=== PATIENT | male | born 1945 | race Caucasian/White ===

== ENCOUNTER 2018-01-02 05:55 | Day surgery (SDC) | payer MEDICARE ==
[~2018-01-02] VITALS: Ht 172.7 cm; Wt 111.1 kg
[~2018-01-02 05:55] MED LIST: ASPIR-LOW81 MG PO; FUROSEMIDE20 MG PO; GLUCOPHAGE500 MG PO; LEVOTHYROXINE25 MCG PO; LISINOPRIL10 MG PO; METOPROLOL SUCC50 MG PO; ZYRTEC10 MG PO
--- NOTE | 2018-01-02 08:00 | NUR ---
[id number]: HEPARIN GIVEN TO ASHU HERRERA, SQL SERVER DBA TO GIVE IN OR.
--- NOTE | 2018-01-02 09:14 | NUR ---
01/02/18 0914 Iram Pike 0905 PATIENT ARRIVES TO PACU AWAKE OFF/ON BUT VERY DROWSY. PATIENT ADMITS HE FEELS VERY GROGGY AND ASK IF THAT IS NORMAL, THEN BACK TO SLEEP. WHEN ASKED IF PATIENT HAS PAIN HE SAYS YES, BUT UNABLE TO QUANTIFY OR POINT TO LOCATION OF PAIN. RESP EVEN AND UNLABORED, MASK AT 6 LITERS.
--- NOTE | 2018-01-02 09:59 | NUR ---
PT ARRIVES TO DS RM 5 AWAKE AND ALERT. PT STATES HE "FEELS WEIRD." PT PROVIDED ICED WATER AND CRACKERS ON ARRIVAL. PT VERY TALKATIVE. CALL LIGHT AT PT LEFT SIDE. PT DRINKING SIPS OF WATER. NO C/O'S AT THIS TIME.
[2018-01-02] MEDS ORDERED: NORCO 5-325 TA1 EACH PO (10:19)
--- NOTE | 2018-01-02 10:44 | NUR ---
PT TOLERATES PO WELL AND DENIES ANY PAIN OR NAUSEA. PT REQUESTS TO CALL ON RM PHONE. PT RESTING QUIETLY IN ROOM WITH NO FURTHER REQUESTS. CALL LIGHT REMAINS AT LEFT OF PT.
--- NOTE | 2018-01-02 11:31 | OR ---
[facility] [address], [place] [address] Signed DATE OF OPERATION: 01/02/2018 SURGEON: Cece Burgess MD PREOPERATIVE DIAGNOSIS: Cholecystitis with cholelithiasis. POSTOPERATIVE DIAGNOSIS: Cholecystitis with cholelithiasis. PROCEDURE: Laparoscopic cholecystectomy without intraoperative cholangiogram. ESTIMATED BLOOD LOSS: None. INDICATIONS: Davi is a 72-year-old obese diabetic gentleman, who was having upper abdominal pain. His alkaline phosphatase was elevated. An ultrasound of the right upper quadrant showed that his gallbladder appeared to be completely full of stones. It seemed to be contracted and thickened about 4 mm. Common bile duct was unremarkable. He was asked to see me with respect to the above. In the office, I gave him a booklet on the gallbladder. He understands the location and function of the gallbladder. We reviewed laparoscopic versus open cholecystectomy. He also understands the expected intraop and postop course. There is risk to surgery including, but not limited to bleeding, infection, scarring, change in contour of the skin, damage to bowel, damage to main bile duct, incisional hernias and other unforeseen comorbidities. He had expressed understanding and wished to proceed. PROCEDURE NOTE: Davi was taken into our operating room and placed in the supine position under general endotracheal tube anesthesia. He was given preoperative antibiotics along with subcutaneous heparin. SCDs were utilized. He was then prepped and draped in the usual sterile fashion. All trocars were placed in usual positions under direct visualization of camera without difficulty. We found that he has a large thick walled abdomen and his liver was quite a bit up underneath the ribcage. In fact, we could get our camera as close as we normally would like in order for visualization in detail. In addition, we had an extra nurse scrub in to help hold retractors. Fortunately, we did not have to place our fan retractor. We cleared off the triangle of [place] and a clip was placed on the cystic artery and it was divided. Because of the technical difficulties we were Electronically Signed By: CECE BURGESS MD 01/02/18 1131 PATIENT NAME: DAVI PLAZA OPERATIVE REPORT DATE OF : 47 REPORT #: [id number] PHYSICIAN: CECE BURGESS MD PCP: ROJAS ALDRIDGE MD REPORT IS CONFIDENTIAL AND NOT TO BE RELEASED WITHOUT AUTHORIZATION [facility] [address] [place] [id number] Signed having, we knew our metal Ranfac catheter would not reach for the cholangiogram. Consequently, we decided to abandon the intraoperative cholangiogram. I placed four clips completely across the cystic duct stump and it was divided sharply with the scissors. We then carefully removed the gallbladder from the gallbladder fossa with the help of the cautery and placed into an EndoCatch bag. After this, the right upper quadrant was irrigated and suctioned out until clear. We used our laparoscopic suturing device to pass 0 Vicryl suture on either side of the fascia of the subxiphoid trocar site. This was tied down to close this fascia primarily. After this, the gallbladder was removed along with the remaining trocars, and all the gas was allowed to escape. The gallbladder was opened on the back table by our circulating nurse. It was a little thickened and had a 12 mm stone stuck in the neck of the gallbladder as well as several small 3 mm yellow cholesterol stones. After this, we closed the fascia of the supraumbilical trocar site with interrupted [id number] and simple 0 Vicryl sutures. Local anesthetic was copiously injected into all trocar sites. Each trocar site was irrigated and suctioned out until clear. The skin and dermis of each trocar site were closed with interrupted 3-0 subcuticular Monocryl sutures. Dry gauze and tape were then applied all incisions. Davi was awakened from his anesthesia, extubated in the OR, and taken to recovery room in stable condition. Cece Burgess MD ALB/MODL /[id number] cc: MD Cece St MD Malcolm Townsley, MD Aimee Rogers, MD Copies: NYLA PARADA MD, ANDREW L MD TOWNSLEY, MALCOLM MD Electronically Signed By: CECE BURGESS MD 01/02/18 1131 PATIENT NAME: DAVI PLAZA OPERATIVE REPORT DATE OF : 47 REPORT #: [id number] PHYSICIAN: CECE BURGESS MD PCP: ROJAS ALDRIDGE MD REPORT IS CONFIDENTIAL AND NOT TO BE RELEASED WITHOUT AUTHORIZATION [address] [address] Signed BERENICE VASQUEZ MD ~ Electronically Signed By: CECE BURGESS MD 01/02/18 1131 PATIENT NAME: DAVI PLAZA OPERATIVE REPORT DATE OF : 47 REPORT #: [id number] PHYSICIAN: CECE BURGESS MD PCP: ROJAS ALDRIDGE MD REPORT IS CONFIDENTIAL AND NOT TO BE RELEASED WITHOUT AUTHORIZATION
--- NOTE | 2018-01-02 12:06 | NUR ---
[id number]: PT REQUESTS YOGURT. DIETARY NOTIFIED. CALL LIGHT AT PT LEFT SIDE. NO C/O'S AT THIS TIME. 1200: PT TOLERATES PO WELL. AND DAUGHTER AT PT BEDSIDE, CONVERSING. 1210: PT UP TO BR WITH RN ASSIST. PT AMBULATES WELL.
--- NOTE | 2018-01-02 12:38 | NUR ---
PT VOIDS 100 MLS YELLOW URINE WITH NO PROBLEMS. PT BACK IN RM SITTING IN CHAIR AT BEDSIDE PER REQUEST. ALL DC CRITERIA MET, PT AGREES HE IS READY TO GET DRESSED AND GO HOME.
--- NOTE | 2018-01-02 13:54 | NUR ---
LE 1300: DC INSTRUCTIONS GIVEN IN PRESENCE OF PT, , AND DAUGHTER. ALL QUESTIONS ANSWERED AND PT VERBALIZES AN UNDERSTANDING OF DC INSTRUCTIONS. PAIN MEDICATION SCRIPT GIVEN TO PT. PT DC'S VIA WHEELCHAIR FROM DS UNIT RM 5.
--- NOTE | 2018-01-02 13:58 | NUR ---
PT WAS ALERT AND ORIENTED. SEEMED DISTRACTED, LOOKING AT WALL OFTEN. HE THEN STATED THAT HE WAS INTRIQUED BY CRUCIFIX ON WALL. I EXPLAINED THIS PARTICULIAR ONE, CHOSEN FOR THIS HOSPITAL. HE SEEMED SATISFIED, AND REQUESTED PRAYER. WILL FOLLOW NEEDED
== END 2018-01-02 13:05 | disposition home or self-care (01) ==
LOC: DS 05:55
PROVIDERS: Colon & Rectal Surgery
PROC: 0FT44ZZ Resection of Gallbladder, Percutaneous Endoscopic Approach (ICD-10-PCS; principal; 2018-01-02 06:45)
DX: K80.10 Calculus of gallbladder with chronic cholecystitis without obstruction (principal); E11.22 Type 2 diabetes mellitus with diabetic chronic kidney disease; E11.622 Type 2 diabetes mellitus with other skin ulcer; L97.221 Non-pressure chronic ulcer of left calf limited to breakdown of skin; I12.9 Hypertensive chronic kidney disease with stage 1 through stage 4 chronic kidney disease, or unspecified chronic kidney disease; N18.3 Chronic kidney disease, stage 3 (moderate); E03.9 Hypothyroidism, unspecified; E66.01 Morbid (severe) obesity due to excess calories; Z88.0 Allergy status to penicillin; Z68.38 Body mass index [BMI] 38.0-38.9, adult; Z79.82 Long term (current) use of aspirin; Z79.899 Other long term (current) drug therapy; Z79.84 Long term (current) use of oral hypoglycemic drugs
CPT/HCPCS: 00790; 88304; J0330; J0694; J1100; J1644; J1885; J2250; J2405; J2704; J2710; J2765; J3010; J7120

== ENCOUNTER 2020-10-03 12:41 | Inpatient (IN) | payer MEDICARE ==
[~2020-10-03] VITALS: Ht 172.7 cm; Wt 111.9 kg
[~2020-10-03 12:41] MED LIST changes: +NORCO 5-325 TA1 EACH PO
[2020-10-03] MEDS ORDERED: ALLOPURINOL100 MG PO (12:45)
[2020-10-03] MEDS ORDERED: ROSUVASTATIN CAL5 MG PO (12:45)
[2020-10-03] MEDS ORDERED: LEVOTHYROXINE50 MCG PO (12:46)
[2020-10-03] MEDS ORDERED: METFORMIN HCL500 M1 PO (12:47)
--- NOTE | 2020-10-03 16:45 | NUR ---
PT TO FLOOR VIA STRETCHER WITH RN KRISTIAN AND DAUGHTER DANIELLA. PT HAS SLIGHTLY SLURRED SPEECH NOTICABLE TO HIM AND HIS DAUGHTER. HAS AN OCCASIONAL STUTTER. ARM AND LEG STRENGTH EQUAL BUT SLIGHTLY WEAKER THAN NORMAL FOR HIM. USES A WALKING CANE AT HOME. PT DENIES VISION DISTURBANCES OR SENSORY LOSS. PLACED ON TELE. ORDERED DINNER AFTER VERIFING THAT SWALLOW WAS INTACT. LOWER LEG EDEMA IS SIGNICANT AND STATES THAT DR VILLARREAL IS TAKING CARE OF THEM. VS STABLE.
[2020-10-03] MEDS ORDERED: CICLOPIROX6.6 ML TOP (17:12)
--- NOTE | 2020-10-03 17:20 | EKG ---
[facility] [address] [facility] [place], [place] [address] Signed Normal sinus rhythm Prolonged QT Abnormal ECG When compared with ECG of 31-DEC-2017 16:07, No significant change was found Confirmed by JOSE A PRITCHETT MD ([id number]) on 10/03/2020 5:20:46 PM Electronically Signed By: JOSE A PRITCHETT MD 10/03/20 1720 PATIENT NAME: PORTIA PLAZA DAGOBERTO Electrocardiogram DATE OF : 47 PHYSICIAN: JOSE A PRITCHETT MD REPORT #: [id number] REPORT IS CONFIDENTIAL AND NOT TO BE RELEASED WITHOUT AUTHORIZATION
--- NOTE | 2020-10-03 18:25 | NUR ---
PT SITTING UP IN BED EATING DINNER. ABLE TO FEED SELF WO DIFFICULTY. DENIES CONCERNS.
[2020-10-03] MEDS ORDERED: ANTI-DIARRHEAL2 MG PO (18:43)
[2020-10-03] MEDS ORDERED: CLARITIN10 MG PO (18:44)
--- NOTE | 2020-10-03 18:44 | NUR ---
MED REC COMPLETE
--- NOTE | 2020-10-03 19:29 | NUR ---
SHIFT REPORT FROM NURSE GOMEZ. PT LAYING IN BED, SLIGHTLY TILTED TO LEFT SIDE. PT AWAKES STAFF ENTERS ROOM. PT DENIES NEEDS AT THIS TIME. CALL LIGHT WITHIN REACH.
--- NOTE | 2020-10-03 20:30 | NUR ---
IN ROOM FOR ASSESSMENT AND CBG CHECK. PT IS ALERT AND ORIENTED. PT SEEMS TO LEAN TOWARDS THE LEFT, FACIAL SYMMETRY IS EQUAL, BILATERAL ARM STRENGTH IS EQUAL. VSS. PT WAS STILL IN JEANS WITH SUSPENDERS FROM ADMIT. JEANS REMOVED; PT WAS RELUCTANT TO DO SO BUT IN THE END AGREED D/T DIFFICULTY WITH JEANS AND URINAL USE. PT THEN STOOD AT BEDSIDE TO USE URINAL. 2PA TO STAND; 400ML URINE OUT. WATER FRESHENED. PT RETURNED TO BED. CALL LIGHT WITHIN REACH. NO FURTHER NEEDS AT THIS TIME.
--- NOTE | 2020-10-03 22:10 | NUR ---
IV PUMP ALARMING. PROBLEM RESOLVED. PT TALKATIVE, SPEECH IS QUITE CLEAR. PT DENIES NEEDS AT THIS TIME. CALL LIGHT WITHIN REACH
--- NOTE | 2020-10-04 00:29 | NUR ---
CALL LIGHT ANSWERED. PT TRIES TO USE URINAL ALTHOUGH THEN FEELS HE MUST HAVE A BM. 2PA TO BSC WITH FWW. PT IS WEAK IN LEGS, OVERESTIMATES WHAT HE CAN DO. LARGE BM SMEARS ON BED, ON SHEETS. PT HAD A LIQUID BM. PT RETURNED TO BED, CALL LIGHT WITHIN REACH. FRESH WATER PROVIDED. NO FURTHER NEEDS AT THIS TIME.
--- NOTE | 2020-10-04 01:27 | NUR ---
IV PUMP WAS ALARMING. PROBLEM RESOLVED. PT THEN STATES THAT HE NEEDS TO URINATE. PT ATTEMPTED USING URINAL WHILE LAYING IN BED WHICH WAS UNSUCCESSFUL. PT THEN REQUESTED TO SIT AT BEDSIDE TO USE URINAL WHICH WAS ALSO UNSUCCESSFUL. PT THEN REQUESTED TO STAND TO URINATE. 2PA TO STAND AND USE URINAL. 50ML IN URINAL AND APPROX 50ML ON FLOOR. PT IS IMPULSIVE AND DOES NOT SEEM TO RECOGNIZE WEAKNESS IN LEGS. PT MUST BE REMINDED OF SAFETY. PT RETURNED TO BED, CALL LIGHT WITHIN REACH. NO FURTHER NEEDS AT THIS TIME
--- NOTE | 2020-10-04 02:30 | NUR ---
IN ROOM FOR 0200 VS. PT ASLEEP, LAYING ON BACK, SNORING LIGHTLY. PT STIRS SLIGHTLY AND GOES QUICKLY BACK TO SLEEP DURING VITALS. NO APPARENT NEEDS AT THIS TIME. CALL LIGHT WITHIN REACH
--- NOTE | 2020-10-04 07:33 | NUR ---
REPORT RECIEVED FROM NIGHT RN.
--- NOTE | 2020-10-04 07:48 | NUR ---
MORNING ASSESSMENT DONE. PATIENT DENIES NEEDS. BG IS 123 WITH NO COVERAGE NEEDED. PATIENT HAS SOME MILD SLURRED SPEECH, BUT IS OTHERWISE RESOLVED FOR LEFT WEAKNESS, PER ASSESSMENT AND REPORTS.
--- NOTE | 2020-10-04 09:27 | NUR ---
MORNING MEDICATIONS ARE GIVEN. PHYSICAL THERAPY IN TO WORK WITH PATIENT.
--- NOTE | 2020-10-04 10:00 | NUR ---
Called and spoke with [facility]'s rehab. They have beds open. She request I wait to send to the chart until PT and OT have completed their assessments.
--- NOTE | 2020-10-04 10:08 | NUR ---
PATIENT AMBULATED IN HALLWAY WITH PHYSICAL THERAPY, BED FRESHENED, PATIENT UP TO CHAIR WITH WARM BLANKET.
--- NOTE | 2020-10-04 10:12 | NUR ---
Patient desires to return home with and daughter. He is concerned about going up the stairs in his house, stating he has six stairs to the landing, and then four stairs more to get inside his house. Will notify MD and PT. Patient states that he does the shopping, and that he does not have trouble with shopping or purchasing food or medications. Patient reports a.m. discharge would be preferred as his has not driven the care that they purchased one year ago, which is their only mode of transportaion, and the daughter reports to work at 3:00 p.m. at [employer].
--- NOTE | 2020-10-04 11:05 | NUR ---
v/s and I&Os done and recorded. no other needs at this time. call light within reach
--- NOTE | 2020-10-04 11:12 | NUR ---
PATIENT IS IN CHAIR, VISITING WITH FAMILY.
--- NOTE | 2020-10-04 12:24 | NUR ---
PATIENT SITTING UP TO CHAIR, FINISHED WITH LUNCH. 3 UNITS OF INSULIN GIVEN FOR BG OF 214. PATIENT DENIES OTHER NEEDS AT THIS TIME.
--- NOTE | 2020-10-04 14:01 | NUR ---
PATIENT IS RESTING IN BED WITH REGULAR RESPIRATIONS.
--- NOTE | 2020-10-04 16:26 | NUR ---
PATIENT UP TO COMMODE TO VOID, ATTEMPT TO BM. PATIENT BACK TO BED, GIVEN X2 TYLENOL FOR 3/10 HEADACHE.
--- NOTE | 2020-10-04 17:52 | NUR ---
V/S and I&Os done and recorded. no other needs at this time. call light within reach.
--- NOTE | 2020-10-04 18:24 | NUR ---
PATIENT HAS DONE WELL TODAY, PARTICIPATED WITH PHYSICAL THERAPY. PATIENT ENDORSES THAT HE MAY NEED REHAB AT [facility] BEFORE RETURNING HOME.
--- NOTE | 2020-10-04 19:30 | NUR ---
IN TO ASST PT TO BSC, PT NOW BACK TO BED, PT BRUSHED TEETH AT THIS TIME, NO FURTHER NEEDS AT THIS TIME
--- NOTE | 2020-10-04 19:38 | NUR ---
SHIFT REPORT FROM NURSE LUKE. PT LAYING IN BED, AWAKE. TEAMCENTER SOLUTION ARCHITECT MALGORZATA IN ROOM TO HELP PT TO TOILET. NO FURTHER NEEDS AT THIS TIME.
--- NOTE | 2020-10-04 19:48 | NUR ---
IV PUMP ALARMING. NEW BAG IVF INFUSING WNL ORDERED. CALL LIGHT IN REACH. pt HAS NO REQUESTS OR CONCERNS.
--- NOTE | 2020-10-04 22:40 | NUR ---
WAS IN ASST PT WITH URINAL, NO FURTHER NEEDS
--- NOTE | 2020-10-05 | NUR ---
CALL LIGHT ANSWERED. 75 ML VOID IN URINAL IN BED. 1PA TO RESTROOM WITH FWW FOR BM. pt TOLERATED AMBULATION WELL. VERBALIZES UNDERSTANDING TO USE CALL LIGHT WHEN FINISHED.
--- NOTE | 2020-10-05 00:46 | NUR ---
CHECKED ON PT. PT SLEEPING ON BACK, EVEN UNLABORED BREATHING. NO SIGNS OF DISTRESS. CALL LIGHT WITHIN REACH
--- NOTE | 2020-10-05 02:38 | NUR ---
CHECKED ON PT. PT SLEEPING ON BACK, EVEN UNLABORED BREATHING, SLILGHT SNORE NOTED. NO APPARENT SIGNS OF DISTRESS. CALL LIGHT WITHIN REACH.
--- NOTE | 2020-10-05 05:45 | NUR ---
IN ROOM FOR MORNING VITALS AND MEDS. PT ALERT AND AWAKE. REQUESTS URINAL; 150ML CLEAR YELLOW URINE. FRESH WATER PROVIDED. NO FURTHER NEEDS AT THIS TIME.
--- NOTE | 2020-10-05 08:45 | NUR ---
PT UP TO CHAIR. SPEECH IN WORKING WITH PT. WILL RETURN TO GIVE MEDS AND COMPLETE ASSESSMENT.
--- NOTE | 2020-10-05 09:20 | NUR ---
Lengthy visit with Davi. Discussed IP vs Op rehab. He is interested in [facility]. Discussed process to admit and also goals and length of stay. He is very interested in completing IP rehab. Discussed I will send his chart when Pt/OT have seen today. Discussed transport and pt would prefer a wc van to transport. He understands he will need to pay round $70 and is agreeable. Discussed we may not hear back from rehab until tomorrow. He states understanding.
--- NOTE | 2020-10-05 09:45 | NUR ---
Spoke with Vanessa Roca from [facility]. Let her note chart was faxed: Face sheet, covid test, H7P, progress notes, PT/OT/ST elizabethals, and med list. She states they will review and let me know possible this afternoon if they can accept.
--- NOTE | 2020-10-05 12:00 | NUR ---
PT/OT WORKED WITH PT THIS MORNING. UP IN CHAIR NOW FOR LUNCH. LUNGS CLEAR. VSS. PT A&O X4, AT TIMES FORGETFUL. IV IN LAC OCCLUDED. WILL ROTATE SITES.
--- NOTE | 2020-10-05 14:00 | NUR ---
NEW 22 G IV STARTED IN RFA. NS INFUSING AT 100 MLS/HR. DENIES PAIN OR NAUSEA. REMAINS ALERT AND ORIENTED. NO ACUTE CHANGES. EATING AND DRINKING WELL. VOIDS IN URINAL. UP IN CHAIR THROUGHOUT DAY. COOPERATING WITH PT/OT. IN CHAIR NOW WATCHING TELEVISION. CALL LIGHT IS REACH.
--- NOTE | 2020-10-05 17:00 | NUR ---
ECHO ORDERED BY DR. HURD. PAIRER IN ROOM. HOLD DINNER TIL COMPLETE. ACHS BG CHECKS ALSO DC'D BG'S HAVE BEEN STABLE DURING STAY.
--- NOTE | 2020-10-05 17:44 | NUR ---
pt up in bed eating dinner. Lipitor given w/ meal. Call light in reach. No other needs at this time.
--- NOTE | 2020-10-05 18:55 | NUR ---
IN FOR PT TO SIGN INFORMED CONSENT. PT IN BED WATCHING TV. DENIES FURTHER NEEDS. CALL LIGHT IN REACH.
--- NOTE | 2020-10-05 19:14 | NUR ---
RECEIVED REPORT FROM AKIKO HERMOSILLO. pt RESTING IN BED. NO REQUESTS AT THIS TIME. CALL LIGHT WITHIN REACH.
--- NOTE | 2020-10-05 20:45 | NUR ---
IN TO GET VITALS, PT HAD URGE TO VOID, UNABLE TO VOID WITH URNIAL, WILL HAVE PT CALL SOON URGE RETURNS, NO FURTHER NEEDS AT THIS TIME, RN IS AWARE AT THIS TIME
--- NOTE | 2020-10-05 22:25 | NUR ---
pt UNABLE TO VOID MORE THAN 150ML. BLADDER SCAN FOR OVER 1000ML. UPDATED . PHIPPS ORDERED ALONG WITH MED. ORDERS ENTERED.
--- NOTE | 2020-10-05 23:16 | NUR ---
PHIPPS INSERTED PER PROTOCOL. pt TOLERATED WELL. LARGE AMOUNT OF CLEAR LIGHT YELLOW URINE RETURNED. LIGHTS OFF. CALL LIGHT WITHIN REACH.
--- NOTE | 2020-10-06 00:22 | NUR ---
ROUNDED ON pt. RESTING IN BED WITH EYES CLOSED, RESPIRATIONS REGULAR AND UNLABORED. CALL LIGHT WITHIN REACH.
--- NOTE | 2020-10-06 00:27 | NUR ---
IN TO CHECK ON PHIPPS DRAINAGE PER RN, NO ISSUES NOTED, RN AWARE
--- NOTE | 2020-10-06 02:29 | NUR ---
ROUNDED ON pt. RESTING IN BED WITH EYES CLOSED, RESPIRATIONS REGULAR AND UNLABORED. PHIPPS DRAINING CLEAR URINE. CALL LIGHT WITHIN REACH.
--- NOTE | 2020-10-06 05:21 | NUR ---
pt WOKE TO VOICE. ASSESSMENT DONE. NEUROS REMAIN NEGATIVE. pt ALERT AND ORIENTED. VITALS AND I&O RECORDED. pt REPORTED "SLIGHT HEADACHE" PRN GIVEN WITH SCHEDULED MED. NO FURTHER REQUESTS AT THIS TIME. CALL LIGHT WITHIN REACH.
--- NOTE | 2020-10-06 08:00 | NUR ---
Received message from Vanessa Dupree at [facility] rehab. They will accept Davi on Friday, they cannot today due to staffing. They will accept him on Friday as long as he is still in requirement of therapy.
--- NOTE | 2020-10-06 08:10 | NUR ---
IN WITH PT BREAKFAST TRAY. MORNING MEDS GIVEN WITH BREAKFAST. ASSESSMENT COMPLETED. LUNG SOUNDS ARE CLEAR. VSS. BLE EDEMA HAS IMPROVED FROM YESTERDAY FROM 2+, IS NOW 1+. ENCOURAGED PT TO KEEP BLE ELEVATED WHEN SITTING IN CHAIR. PHIPPS OUTPUT HAS BEEN ADEQUATE, URINE IS CLEAR YELLOW. PT TO GO TO DAY SURGERY FOR THYROID ULTRASOUND. WORKING WELL W/ PT/OT. PT REMAINS ALERT AND ORIENTED, AT TIMES SLOW TO RESPOND, BUT SPEECH IS NOT SLURRED. NO ACUTE CHANGES. CALL LIGHT IS IN REACH.
--- NOTE | 2020-10-06 09:30 | NUR ---
Spoke with Davi and updated he has been accepted to the program. He now states he would prefer his family to drive him to [place]. Let him know I will not schedule transport for Friday.
--- NOTE | 2020-10-06 10:11 | NUR ---
PATIENT TO DAY SURGERY WITH AKIKO ULLOA, FOR THRYOID BIOPSY.
--- NOTE | 2020-10-06 11:24 | NUR ---
pt returned from day surgery via jaqui mcdonald/ Shahla WHARTON. Pt is without complaint. Stood and transferred back to bed. Mathis emptied of 500 mls clear yellow urine. TRIAGE REGISTERED NURSE in for VS. No other needs at this time.
--- NOTE | 2020-10-06 12:18 | NUR ---
DR HURD IN TO ASSESS PT. ORDERS TO CLAMP PHIPPS CATH AND WHEN PT FEELS URGE TO VOID, REMOVE CATHETER, PT TO VOID, BLADDER SCAN AND IF URINE >500 MLS REMAINS IN BLADDER INSERT NEW PHIPPS. PHIPPS CLAMPED @ 1210. PT INSTRUCTED TO CALL WHEN URGE TO VOID COMES.
--- NOTE | 2020-10-06 15:00 | NUR ---
PHYSICAL THERAPY IN TO WORK WITH PT AND PT REPORTS URGE TO VOID. THIS RN BLADDER SCANNED PT AND 240 MLS IN BLADDER. PHIPPS REMOVED AND PT GIVEN URINAL TO VOID, UNSUCCESSFUL. SCANNED AND 240 MLS REMAIN IN BLADDER. PT OFF TO WORK WITH DEVORA PT, AND WILL ATTEMPT TO VOID UPON RETURN.
--- NOTE | 2020-10-06 15:09 | NUR ---
ASKED PATIENT DID HE BRUSH HIS TEETH AND WASH HIS FACE THIS MORING AND HE SAID WITH OCCUPATIONAL THERAPY. HELPED HIM ORDER HIS DINNER AND BREAKFAST.
--- NOTE | 2020-10-06 15:12 | NUR ---
PATIENT IS WALKING WITH PHYSICAL THERAPY AND PATIENT WALKED 1 LAP AROUND MED SURG. PATIENT IS NOW DOING EXERCISES WITH PHYSICAL THERAPIST AND AFTER THAT HE IS GOING TO WALKED ANOTHER LAP. PATIENT IS USING A WALKER.
--- NOTE | 2020-10-06 15:34 | NUR ---
Faxed note with echo results to Vanessa. She states she will update her Dr, but this should not be a problem as it can be followed up as OP.
--- NOTE | 2020-10-06 16:15 | NUR ---
PT REPORTS URGE TO VOID, ATTEMPTED W/ URINAL AND UNSUCCESSFUL. BLADDER SCAN POST-ATTEMPT SHOWS [address] HURD AWARE AND ORDERS TO CONTINUE TO MONITOR. PT WILL REQUIRE PHIPPS INSERTION IF BLADDER SCAN SHOWS >500 MLS. PT DENIES DISCOMFORT EXCEPT FOR WITH PALPATION OF BLADDER.
--- NOTE | 2020-10-06 18:06 | NUR ---
PT GIVEN LIPITOR W/ DINNER. DENIES NEED TO URINATE AT THIS TIME. SITTING UP IN BED READING. NO OTHER NEEDS CURRENTLY. CALL LIGHT IS IN REACH.
--- NOTE | 2020-10-06 19:30 | NUR ---
PT UNABLE TO VOID USING URINAL. GINA CURATOR OF COLLECTIONS, BLADDER SCANNED PT AND SCAN SHOWED 539 MLS IN BLADDER. ATTEMPTED PHIPPS INSERTION PER PRIOR VERBAL ORDER FROM DR HURD, THAT IF >500 MLS ON BLADDER SCAN AND PT UNABLE TO VOID, PHIPPS CATHETER TO BE INSERTED. ATTEMPTED PHIPPS CATHETER INSERTION USING STERILE TECHNIQUE X2, FIRST W/ 16 FR, 2ND W/ COUDE WITH ASSISTANCE FROM MARLY MARTINES RN AND VALENTÍN SHEET ROCK APPLIER. BOTH ATTEMPTS UNSUCCESSFUL. SEE MARLY MARTINES RN NOTE.
--- NOTE | 2020-10-06 19:35 | NUR ---
PATIENT HAS OVER 500ML IN BLADDER. CALL TO DR. HURD, UNABLE TO PLACE PHIPPS CATHETER, NEITHER REGULAR 16F PHIPPS KIT OR COUDE WAS ABLE TO BE PLACED IN BLADDER, BALLOON RESISTANCE FELT IN ALL AREAS. SMALL AMOUNT OF URINE DRAINED WHEN WITHDRAWING CATHETER AND NEAR END OF PENIS (150 ML). MODERATE AMOUNT OF BLOOD DRAING FROM PENIS AFTER WITHDRAWING CATHETER, PAD PLACED OVER PENIS AND DRAINAGE HAS STOPPED. DR. HURD INDICATED TO NOT CONTINUE WITH CATHETER ATTEMPTS AT THIS TIME.
--- NOTE | 2020-10-06 19:35 | NUR ---
SHIFT REPORT RECEIVED FROM DAYSHIFT AKIKO HERMOSILLO AT BEDSIDE. pt AWAKE AND RECENTLY ATTEMPTED TO VOID, UNSUCCESSFUL. SMALL AMOUNT BLOOD NOTED TO ABD PAD COVERING PENIS, WILL MONITOR. BOARD UPDATED, CALL LIGHT IN REACH.
--- NOTE | 2020-10-06 19:40 | NUR ---
NEW 22 G IV STARTED IN RIGHT WRIST. 22 G IN RFA LEAKING AND INFILTRATED, REMOVED.
--- NOTE | 2020-10-06 19:45 | NUR ---
ONE TIME DOSE BETHANECHOL CHLORIDE UNAVAILABLE IN XIS AT THIS TIME, DISCUSSED WITH SHOE STAINER SHONNA. SHOE STAINER IN CONTACT WITH HAND SHOES SEWER ATTEMPTING TO LOCATE MEDICATION.
--- NOTE | 2020-10-06 20:12 | NUR ---
THIS CHILD AND FAMILY COUNSELOR HAS BEEN WORKING WITH TOOL/DIE MAKER, TELEPHARMACY AND PHARMACIST HYDROELECTRIC PLANT MECHANICAL ENGINEER TO TRY TO OBTAIN THE ONE TIME ORDER FOR BETHANECHOL CHLORIDE. AT THIS POINT PHARMACIST GIFTY IS FINDING OUT IF WE ACTUALLY HAVE THIS DRUG IN STOCK AND WILL CALL BACK.
--- NOTE | 2020-10-06 21:04 | NUR ---
IN ROOM TO ADMINISTER BETHANECHOL CHLORIDE 10MG PO FOR PRIMARY AKIKO RUBALCAVA. PHARMACIST JUST BROUGHT IT OVER. DAVE MCGARRY IS IN THE ROOM WITH PT AT THIS TIME.
--- NOTE | 2020-10-06 21:10 | NUR ---
ASSESSMENT COMPLETE, NO SCHEDULED MEDS AT THIS TIME. pt AWAKE AND RECENTLY ATTEMPTED TO VOID. pt REPORTS INTERMITTENT URGES TO VOID WHICH THEN QUICKLY GO AWAY. RECENTLY MEDICATED WITH PO BETHANECHOL CHLORIDE, WILL MONITOR. pt UNABLE TO VOID AT THIS TIME, ABD PAD REMAINS IN PLACE D/T BLOOD OOZING AT THE PENIS. VSS, pt DENIES PAIN AND NAUSEA. A/OX4, CALLS APPROPRIATELY. 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 BLE REDDENED IN COLOR, SCAB NOTED AT TIP OF RIGHT BIG TOE. NO FURTHER NEEDS AT THIS TIME, CALL LIGHT IN REACH.
--- NOTE | 2020-10-06 21:14 | NUR ---
IN TO GET VITALS, PT AT BEDSIDE FOR ATTEMPT TO VOID, NO VOID AT THIS TIME, FRESH ICE WATER TOPPED OFF, NO FURTHER NEEDS
--- NOTE | 2020-10-06 23:15 | NUR ---
pt was asked if he needed to use the restroom, he states he feels the urge, but doesnt believe he can go. bladder scan was done and pt had 860ccs in his bladder. two failed attempts with the urinal, AKIKO Henry assisted with pt standing with FWW, 50ccs voided.
--- NOTE | 2020-10-06 23:46 | NUR ---
pt BLADDERSCANNED BY DAVE NIELSEN, RESULT OF 860MLS. AFTER BLADDER SCAN, pt UP SBA WITH FWW AND VOIDED 50MLS BLOOD TINGED URINE, SMALL CLOT ALSO NOTED. NO ACTIVE BLEEDING FROM PENIS, BUT WHEN COMPLETING [facility]ENE CARE, SMALL AMOUNT BLOOD OOZES FROM PENIS. DR HURD UPDATED ON ABOVE INFORMATION WELL TIME OF FIRST BETHANECHOL CHLORIDE. MED OBTAINED FROM MANAGER LAUNDRY PHARMACIST. TELEPHONE ORDER READ BACK FOR ANOTHER 10MG BETHANECHOL PO ONCE AND TO MONITOR UNTIL MORNING. PER DR HURD, "HE HAS A HISTORY OF URINARY RETENTION AND DOES THIS AT HOME". THIS RN DISCUSSED PARAMETERS REGARDING BLADDER SCANNER AND WHEN TO NOTIFY HOSPITALIST. NO PARAMETERS GIVEN, OTHER THAN TO MONITOR HIM OVERNIGHT AND WE'LL SEE HOW HE IS IN THE MORNING. PER DR HURD, NO NEED TO CALL HOSPITALIST IF pt DOES NOT VOID DURING THE NIGHT. MANAGER LAUNDRY PHARMACIST MADE AWARE OF NEW ORDERS, AWAITING MEDICATION.
--- NOTE | 2020-10-07 00:35 | NUR ---
IN TO ASST PT WITH URINAL, THEN SBA FWW TO THE BATHROOM FOR POSSIBLE BM, THEN BED, RN AWARE OF PT STATUS
--- NOTE | 2020-10-07 00:44 | NUR ---
ONE TIME DOSE SCHEDULED BETHANECHOL CHLORIDE GIVEN AT THIS TIME (SEE EMAR). pt UP WITH ELEVATOR SERVICEMAN MALGORZATA AT THIS TIME, ATTEMPTING TO HAVE BM. NO FURTHER NEEDS. pt DENIES PAIN OR BLADDER SPASMS AT THIS TIME, WILL MONITOR.
--- NOTE | 2020-10-07 00:55 | NUR ---
DR HURD CALLED THIS RN STATION, INFORMED MD THAT SECOND DOSE BETHANECHOL WAS GIVEN, PROVIDED BY LIBRARY SERVICES COORDINATOR PHARMACIST MED IS NOT AVAILABLE IN [facility] MACHINE. PER , ENCOURAGE pt TO STAND WHEN ATTEMPTING TO VOID. pt HAS BEEN OOB SINCE START OF SHIFT AND STANDING WHENEVER ATTEMPTING TO VOID, WILL MONITOR. NO NEW ORDERS.
--- NOTE | 2020-10-07 01:41 | NUR ---
PT CALLED TO USE THE RESTROOM. HE VOIDED 25MLS OF PINK URINE AND HARD A LARGE LOOSE BM. AFTER GETTING BACK IN BED PT FELT THE URGE TO URINATE, KRISSY MCGARRY ASSISTED HIM WITH URINAL BUT HE WAS NOT ABLE TO VOID. HE IS NOW BACK IN BED AND CALL LIGHT IS CLOSE.
--- NOTE | 2020-10-07 03:30 | NUR ---
pt RESTING QUIETLY IN BED WITH EYES CLOSED, RR EVEN AND UNLABORED, NO DISTRESS NOTED. CALL LIGHT IN REACH.
--- NOTE | 2020-10-07 03:49 | NUR ---
IN TO ASST PT WITH VOID, UP TO THE TOILET FOR BM WELL, NOW BACK IN BED AT THIS TIME, 100 ML OF URINE NOTED, NO FURTHER NEEDS AT THIS TIME
--- NOTE | 2020-10-07 03:54 | NUR ---
ASSESSMENT COMPLETE, NO NEW CHANGES OR CONCERNS. pt AWAKE AND RESTING IN BED, A/OX4. NO NEW OR WORSENING STROKE SYMPTOMS. EQUAL STRENGTH NOTED WITH BUE AND BLE. pt DENIES PAIN AND NAUSEA, RECENTLY VOIDED 100MLS. WILL CONTINUE TO MONITOR AND BLADDER SCAN PRIOR TO UPDATING MD. pt ALSO DENIES BLADER SPASMS OR PAIN. CALL LIGHT IN REACH.
--- NOTE | 2020-10-07 06:20 | NUR ---
IN TO GET PT VITALS, GOT PT UP TO THE TOILET FOR A BM AND VOIDING ATTEMPT, PT ABLE TO PASS 200MLs, RN IN TO BLADDERSCAN, NO FURTHER NEEDS AT THIS TIME
--- NOTE | 2020-10-07 06:38 | NUR ---
pt UP SBA WITH FWW WITH DAVE MCGARRY, pt VOIDED 200MLS AND WAS THEN BLADDER SCANNED, RESULT OF 888MLS. pt DENIES NEEDS AT THIS TIME, CALL LIGHT IN REACH. RETAIL DEPARTMENT RESETAKIKO BASSETT.
--- NOTE | 2020-10-07 06:56 | NUR ---
pt HAD A GOOD NIGHT, SLEPT WELL THIS SHIFT. UNSUCCESSFUL PHIPPS ATTEMPT BY DAYSHIFT AT SHIFT CHANGE. PT GIVEN 10MG PO BETHANECHOL X2 FOR URINE RETENTION, VOID VOLUMES INCREASING, MOST RECENT 200MLS. CONTINUES TO HAVE ELEVATED BLADDER SCANS, MOST RECENT 888MLS. MD AWARE, CONTINUE TO MONITOR. A/OX4, USES CALL LIGHT APPROPRIATELY. SBA WITH FWW. 3 BM'S THIS SHIFT. pt DENIED NAUSEA AND PAIN THIS SHIFT.
--- NOTE | 2020-10-07 10:08 | NUR ---
PATIENT WOKE TO VOICE, VITALS AND I&OS CHARTED. CALL LIGHT IN REACH
--- NOTE | 2020-10-07 10:39 | NUR ---
Patient out of room working with physical therapy.
--- NOTE | 2020-10-07 14:49 | OR ---
[facility] [address], [place] [address] Signed DATE OF OPERATION: 10/06/2020 SURGEON: Ashu Sebastian MD PREOPERATIVE DIAGNOSES: 1. Multinodular goiter; 4 cm left thyroid lobe mass. 2. Obesity. 3. Recent cerebrovascular accident manifesting dysarthria. POSTOPERATIVE DIAGNOSES: 1. Multinodular goiter; 4 cm left thyroid lobe mass. 2. Obesity. 3. Recent cerebrovascular accident manifesting dysarthria. PROCEDURE: Ultrasound-guided biopsy of left thyroid mass (4 cm with additional specimen for Afirma. ANESTHESIA: 1% lidocaine. INDICATION: This 75-year-old white man was admitted to the hospital on 10/03/[address] Lindquist for cerebrovascular accident manifesting primarily as dysarthria. Imaging studies including CT scan of the neck and CT angiogram incidentally noted a large 4 cm mass of the left thyroid lobe. Subsequent ultrasound shows not only that mass, but two masses in the right lobe that are at least 18 mm in size. The patient is anticipating a transfer to outpatient rehab center in [place] near future. He has no family history of thyroid cancer, radiation therapy to the neck or other problem, has no cervical dysphagia. Since he is hospitalized at this time and has largely recovered from the effects of his cerebrovascular accident, consultation was undertaken and offers made for ultrasound-guided fine-needle aspiration biopsy of the thyroid nodule. Clinical exam does not demonstrate a distinct mass considering his short tyson neck and obesity. The risks of bleeding, infection, and so forth were reviewed with him. He understands and wished to proceed. FINDINGS: The left thyroid lesion in question was well identified. Multiple passes were taken with a needle under ultrasound guidance providing tissue for cytologic analysis. Additionally, a specimen was taken for Afirma should the lesion be categorized as Electronically Signed By: ASHU SEBASTIAN MD 10/07/20 1449 PATIENT NAME: PORTIA PLAZA OPERATIVE REPORT DATE OF : 47 REPORT #: [id number] PHYSICIAN: ASHU SEBASTIAN MD PCP: TIMUR ALDRIDGE MD REPORT IS CONFIDENTIAL AND NOT TO BE RELEASED WITHOUT AUTHORIZATION [facility] [address], [place] [address] Signed [place] III or higher. DESCRIPTION OF PROCEDURE: In the Day Surgery Area, he was placed in a supine position with a shoulder roll allowing for neck extension. Note was made of a very stubby and tyson neck. Ultrasound with a SonoSite device was used identifying the dominant left thyroid nodule. The other side showed somewhat cystic changes of the nodules. The neck was prepared with chlorhexidine solution and draped sterilely. A 1% lidocaine was injected locally. The SonoSite probe was placed in a sterile sleeve and sterile technique was maintained. Under direct visualization with ultrasound guidance, a 22-gauge needle was passed into the offending nodule. Multiple passes were taken and offloaded. Three syringes in total were used to interrogate this lesion. Given the difficulty in his regional anatomy, the additional nodules were not biopsied at this time. A Band-Aid was applied. He tolerated procedure well. Ashu Sebastian MD /MODL /[id number] cc: MD Timur Rivero MD Copies: JOSE A LINDQUIST MD, MALCOLM MD ~ Electronically Signed By: ASHU SEBASTIAN MD 10/07/20 1449 PATIENT NAME: PORTIA PLAZA OPERATIVE REPORT DATE OF : 47 REPORT #: [id number] PHYSICIAN: ASHU SEBASTIAN MD PCP: TIMUR ALDRIDGE MD REPORT IS CONFIDENTIAL AND NOT TO BE RELEASED WITHOUT AUTHORIZATION
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
--- NOTE | 2020-10-07 15:10 | NUR ---
Patient in bed reading at this time. Patient has no distress, respirations even and non labored. Patient denies pain. Personal supplies and call light within reach.
--- NOTE | 2020-10-07 19:05 | NUR ---
SHIFT REPORT RECEIVED FROM BHAVIN WHARTON. PT RESTING IN BED, WATCHING TV. NO NEEDS AT THIS TIME. CALL LIGHT IN REACH.
--- NOTE | 2020-10-07 21:50 | NUR ---
ASSESSMENT, VS AND I&O COMPLETED. IV WNL, CDI, FLUSHED WELL. LUNGS CLEAR, HEART TONES REGULAR. ABD SOFT, NONTENDER, BOWEL TONES ACTIVE. SPEECH SLIGHLTY SLURRED. CMS INTACT. REDNESS AND 1+ EDEMA IN BLE. GCS 15, A&O X4. NO OTHER NEEDS AT THIS TIME. CALL LIGHT IN REACH.
--- NOTE | 2020-10-07 23:01 | NUR ---
PT UP TO BR AND BACK TO BED. NO OTHER NEEDS AT THIS TIME. CALL LIGHT IN REACH.
--- NOTE | 2020-10-07 23:35 | NUR ---
PT UP TO BR AND BACK TO BED. HOT TEA PROVIDED. NO OTHER NEEDS AT THIS TIME. CALL LIGHT IN REACH.
--- NOTE | 2020-10-08 01:12 | NUR ---
PT AWAKE IN ROOM, WATCHING TV. NO NEEDS AT THIS TIME. CALL LIGHT IN REACH.
--- NOTE | 2020-10-08 03:15 | NUR ---
PT RESPOSITINED. ASSESSMENT COMPLETED. PT IS FOREGETFUL BUT ORIENTED TO PERSON, PLACE AND TIME. LUNGS CLEAR, HR IRREGULAR. ABD SOFT, NONTENDER, PT STATES NORMAL AND BOWEL TONES ACTIVE. INCISION WNL, DRY. CATHERINE SITES WNL, CUSTOMER EXPERIENCE SPECIALIST. CMS INTACT EXCEPT LEFT BKA. IJ WNL. BEDDING AND GOWN CHANGED. NO OTHER NEEDS AT THIS TIME. CALL LIGHT IN REACH.
--- NOTE | 2020-10-08 03:19 | NUR ---
PT RESTING IN BED, EYES CLOSED. RR EVEN, UNLABORED. CALL LIGHT IN REACH.
--- NOTE | 2020-10-08 04:42 | NUR ---
PT RESTING IN BED, EYES CLOSED. RR EVEN, UNLABORED. CALL LIGHT IN REACH.
--- NOTE | 2020-10-08 06:08 | NUR ---
PT ASSESSMENT, VS AND I&O COMPLETED. SCHEDULED MED PROVIDED. PT UP TO BR, SBA FWW, BACK TO BED. GCS 15, A&O X4. SPEECH SLIGHLY UNCLEAR. CMS INTACT. LUNGS CLEAR. HEART TONES REGULAR. ABD SOFT, NONTENDER, BOWEL TONES ACTIVE. BLE EDEMA 1+, REDNESS UNCHANGED. SCATTERED ABRASIONS NOTED. ICE WATER PROVIDED. NO OTHER NEEDS AT THIS TIME. CALL LIGHT IN REACH.
--- NOTE | 2020-10-08 10:52 | NUR ---
Patient up in chair, respirations even and non labored. Pt denies pain at this time and is voiding q/s. No notable blood in urine. No needs, personal supplies and call light within reach. Bilat domestic maid are strong, notable right upper/lower ext weakness.
[2020-10-08] MEDS ORDERED: BETHANECHOL CHL10 MG PO (13:16)
[2020-10-08] MEDS ORDERED: ROSUVASTATIN CA10 MG PO (13:17)
[2020-10-08] MEDS ORDERED: LO-DOSE ASPIRIN81 MG PO (13:18)
[2020-10-08] MEDS ORDERED: FUROSEMIDE20 MG PO (13:18)
--- NOTE | 2020-10-08 16:46 | NUR ---
Patient in chair watching tv. Patient reports doing well. He is eating and voiding well. No needs at this time. Personal supplies and call light within reach.
--- NOTE | 2020-10-08 19:15 | NUR ---
SHIFT REPORT FROM NURSE DELCID. PT GETTING UP FROM CHAIR TO BED. DENIES NEEDS AT THIS TIME. DAVE RUBIO IN ROOM WITH PT.
--- NOTE | 2020-10-08 21:00 | NUR ---
PATIENT CALLED TO USE THE BATHROOM. SBA USING WALKER. PATIENT IS BACK IN BED. V/S AND I&O TAKEN AND CHARTED. PRIMARY RN WAS WITH PATIENT.
--- NOTE | 2020-10-08 21:10 | NUR ---
IN ROOM FOR VS/I&OS AND ASSESSMENT. PT WAS JUST UP TO TOILET. PT IS IN [employer] AND REPEATS THAT HE IS GOING TO REHAB IN THE MORNING. VSS. PT REPORTS NO PAIN. PT USES CALL LIGHT APPROPRIATELY. BLE EDEMA STILL PRESENT, REMAINS REDDENED. WATER REFILLED, CALL LIGHT WITHIN REACH. NO FURTHER NEEDS AT THIS TIME.
--- NOTE | 2020-10-08 21:30 | NUR ---
PATIENT CALLED. SBA TO THE BATHROOM AND BACK TO BED. NO OTHER NEEDS AT THIS TIME.
--- NOTE | 2020-10-08 23:05 | NUR ---
PATIENT CALLED TO USE THE BATHROOM. SBA. NEW PULL UPS PROVIDED. PATIENT IS BACK IN BED.
--- NOTE | 2020-10-08 23:51 | NUR ---
CHECKED ON PT; APPEARS TO BE SLEEPING WITH EYES CLOSED AND EVEN BREATHING NOTED. CALL LIGHT WITHIN REACH
--- NOTE | 2020-10-09 01:38 | NUR ---
ANSWERED CALL LIGHT. PATIENT IS UP TO USE THE BATHROOM. PATIENT IS BACK IN BED.
--- NOTE | 2020-10-09 03:53 | NUR ---
CHECKED ON PT. PT APPEARS TO BE SLEEPING ON BACK WITH SLIGHT TILT TO THE LEFT. CALL LIGHT WITHIN REACH. NO SIGNS OF DISTRESS.
--- NOTE | 2020-10-09 05:50 | NUR ---
IN ROOM FOR MORNING MEDS, VS/I&OS AND ASSESSMENT. PT HAD BEEN SLEEPING NURSING STAFF ENTERS ROOM. PT WAS UP TO TOILET WITH SBA. PT RETURNED TO BED AND TOOK MORNING MED. NO FURTHER NEEDS AT THIS TIME. CALL LIGHT WITHIN REACH.
--- NOTE | 2020-10-09 07:58 | NUR ---
Faxed updated notes from the weekend and called [facility]. They plan to accept this pt today. I will confirm transportation. They would like pt to admit between 12?30 and 1300. Will fax orders when completed with dc summary.
--- NOTE | 2020-10-09 08:56 | NUR ---
PT ASSISTED TO BATHROOM. PT ABLE TO VOID 200ML. URINE IS RED IN COLOR. PT REPORTS HE HAS NOT HAD ANY BLOOD IN URINE FOR [address] HURD NOTIFIED IN MORNING MEETING. ORDERS TO MONITOR URINE COLOR AND UPDATE ON NEXT VOID.
--- NOTE | 2020-10-09 09:13 | NUR ---
PT VOIDED 250 MLS. URINE IS CLEAR AND YELLOW IN COLOR. DR HURD NOTIFIED.
--- NOTE | 2020-10-09 10:30 | NUR ---
Faxed orders and dc summary. Called and updated daughter will transport pt at 11:30. [facility] asks I give them the phone number and they will assist pt into the building when he arrives. Phone number written on sticky note and given to Davi.
--- NOTE | 2020-10-09 10:30 | NUR ---
During my patient rounding today, this patient states that his needs are being met, he is very happy with the care that he has received, stating "My care has been excellent." He also agrees that his plan of care has been explained to him, and he understands the treatment therapies he has been given, per his statement.
--- NOTE | 2020-10-09 12:37 | NUR ---
PT ALERT, ORIENTED AND SITTING IN CHAIR DRESSED AND READY FOR DC. PT HAD CALLED HELP BUTTON-NEEDED TO GET TO RR. BROUGHT OVER HIS FWW, GAVE BLESSING AND WILL FOLLOW
== END 2020-10-09 11:30 | DRG 65 ==
LOC: ED 12:41 → MS 16:14
PROVIDERS: ADMIT Internal Medicine; ATTEND Internal Medicine
PROC: 0GBG3ZX Excision of Left Thyroid Gland Lobe, Percutaneous Approach, Diagnostic (ICD-10-PCS; principal; 2020-10-06)
DX: I63.9 Cerebral infarction, unspecified (principal); G81.91 Hemiplegia, unspecified affecting right dominant side; N17.9 Acute kidney failure, unspecified; N18.4 Chronic kidney disease, stage 4 (severe); Z20.822 Contact with and (suspected) exposure to COVID-19; R47.81 Slurred speech; R26.89 Other abnormalities of gait and mobility; R29.810 Facial weakness; R47.1 Dysarthria and anarthria; R31.9 Hematuria, unspecified; R33.9 Retention of urine, unspecified; R93.1 Abnormal findings on diagnostic imaging of heart and coronary circulation; E66.9 Obesity, unspecified; E79.0 Hyperuricemia without signs of inflammatory arthritis and tophaceous disease; E78.5 Hyperlipidemia, unspecified; E03.9 Hypothyroidism, unspecified; N32.89 Other specified disorders of bladder; G47.30 Sleep apnea, unspecified; E11.22 Type 2 diabetes mellitus with diabetic chronic kidney disease; I12.9 Hypertensive chronic kidney disease with stage 1 through stage 4 chronic kidney disease, or unspecified chronic kidney disease; E04.2 Nontoxic multinodular goiter; Z88.0 Allergy status to penicillin; Z79.899 Other long term (current) drug therapy; Z79.84 Long term (current) use of oral hypoglycemic drugs; Z79.82 Long term (current) use of aspirin; Z68.37 Body mass index [BMI] 37.0-37.9, adult
CPT/HCPCS: 36415; 70450; 70496; 70498; 71045; 76536; 80048; 80053; 80061; 83036; 85025; 85610; 85730; 92507; 92523; 93005; 93010; 93306; 97110; 97112; 97116; 97162; 97165; 97535; 99285-25; C9803; J1650; J1815; J7030; Q9967; U0003

== ENCOUNTER 2023-05-26 19:17 | Emergency (ER) | payer MEDICARE ==
[~2023-05-26] VITALS: Ht 172.7 cm; Wt 83.9 kg
[~2023-05-26 19:17] MED LIST changes: +ALLOPURINOL100 MG PO; +ANTI-DIARRHEAL2 MG PO; +BETHANECHOL CHL10 MG PO; +CICLOPIROX6.6 ML TOP; +CLARITIN10 MG PO; +LEVOTHYROXINE50 MCG PO; +LO-DOSE ASPIRIN81 MG PO; +METFORMIN HCL500 M1 PO; +ROSUVASTATIN CA10 MG PO; +ROSUVASTATIN CAL5 MG PO
[2023-05-26 19:40] LABS: BASOPHILS 0.5 % (0-2); EOSINOPHILS 1.1 % (0-6); HEMATOCRIT 39.7 % (35.0-50.0); HEMOGLOBIN 13.3 g/dL (12.0-18.0); LYMPHOCYTES 5.8 % (24-44); MCH 29.1 (27-36); MCHC 33.6 g/dl (30-36); MCV 86.8 fl (81-99); MONOCYTES 6.1 % (0-12); NEUTROPHILS 86.5 % (39-80); PLATELET COUNT 217 K/uL (140-440); RBC 4.57 M/ul (4.3-5.7); RDW 13.8 (10.5-15.0)
[2023-05-26 19:47] LABS: INR 0.99 (0.80-1.30); PROTIME 12.6 Sec (11.2-14.2)
[2023-05-26 19:52] LABS: ALBUMIN 3.5 g/dL (3.4-5.0); ALBUMIN/GLOBULIN RATIO 0.78 (1.1-2.4); ANION GAP 17.4 (7-21); BILIRUBIN, TOTAL 0.5 ng/dL (0.2-1.0); BUN/CREATININE RATIO 16.84 (6.0-28.6); CREATININE, SERUM 1.84 mg/dL (0.70-1.30); POTASSIUM 3.4 mmol/L (3.5-5.1)
[2023-05-26 20:10] LABS: ABO O; RH POSITIVE
[2023-05-26 20:11] LABS: ANTIBODY SCREEN NEGATIVE
[2023-05-26 20:29] LABS: BILIRUBIN, URINE NEGATIVE (negative); BLOOD/HGB, URINE MODERATE (Negative); KETONE, URINE NEGATIVE (Negative); LEUK ESTERASE, URINE MODERATE (negative); NITRITE, URINE POSITIVE (negative)
[2023-05-26 20:34] LABS: BACTERIA, URINE 1+ /hpf (negative); CASTS, URINE NONE SEEN \\lpf; CRYSTALS, URINE NONE SEEN (0-1+); EPITHELIAL CELLS, URINE SQUAMOUS 1+ /lpf (0-1+); REFLEX CULTURE, URINE Yes (No); WHITE BLOOD CELLS, URINE >50 /HPF (0-5)
[2023-05-26] MEDS ORDERED: CEFDINIR300 MG PO (20:57)
[2023-05-26 21:42] VITALS: BP 160/105
--- NOTE | 2023-05-27 06:00 | EKG ---
[facility] [address] [facility] [place] [address] Signed Sinus rhythm with premature atrial complexes with aberrant conduction Otherwise normal ECG When compared with ECG of 03-OCT-2020 13:02, aberrant conduction is now present Confirmed by PATITO CARR MD ([id number]) on 05/27/2023 6:00:30 AM Electronically Signed By: PATITO CARR 05/27/23 0600 PATIENT NAME: PORTIA PLAZA DAGOBERTO Electrocardiogram DATE OF : 47 PHYSICIAN: PATITO CARR REPORT #: [id number] REPORT IS CONFIDENTIAL AND NOT TO BE RELEASED WITHOUT AUTHORIZATION
== END 2023-05-26 21:44 | disposition home or self-care (01) ==
LOC: ED 19:17
PROVIDERS: Family Medicine
DX: N39.0 Urinary tract infection, site not specified (principal); E11.9 Type 2 diabetes mellitus without complications; I10 Essential (primary) hypertension; E03.9 Hypothyroidism, unspecified; Z88.0 Allergy status to penicillin; Z79.82 Long term (current) use of aspirin; Z79.899 Other long term (current) drug therapy; Z79.84 Long term (current) use of oral hypoglycemic drugs; Z79.890 Hormone replacement therapy
CPT/HCPCS: 36415; 80053; 81001; 85025; 85610; 86850; 86900; 86901; 87088; 93005; 93010; 96374; 99284-25; C9113

== ENCOUNTER 2023-09-03 22:04 | Observation (INO) | payer MEDICARE ==
[~2023-09-03] VITALS: Ht 172.7 cm; Wt 103.6 kg
[~2023-09-03 22:04] MED LIST changes: +CEFDINIR300 MG PO
[2023-09-03] MEDS ORDERED: LASIX40 MG PO (22:35)
[2023-09-03 23:14] LABS: ALBUMIN 3.2 g/dL (3.4-5.0); ALBUMIN/GLOBULIN RATIO 0.71 (1.1-2.4); ANION GAP 14.2 (7-21); BILIRUBIN, TOTAL 0.3 ng/dL (0.2-1.0); BUN/CREATININE RATIO 17.39 (6.0-28.6); CREATININE, SERUM 1.61 mg/dL (0.70-1.30); POTASSIUM 4.2 mmol/L (3.5-5.1); PROTEIN, TOTAL 7.7 g/dL (6.4-8.2)
[2023-09-03 23:38] LABS: BASOPHILS 0.6 % (0-2); EOSINOPHILS 1.2 % (0-6); HEMATOCRIT 40.5 % (35.0-50.0); HEMOGLOBIN 13.3 g/dL (12.0-18.0); LYMPHOCYTES 6.9 % (24-44); MCH 28.7 (27-36); MCHC 32.9 g/dl (30-36); MCV 87.3 fl (81-99); MONOCYTES 7.1 % (0-12); NEUTROPHILS 84.2 % (39-80); PLATELET COUNT 239 K/uL (140-440); RBC 4.64 M/ul (4.3-5.7); RDW 13.3 (10.5-15.0)
[2023-09-04 00:07] LABS: BILIRUBIN, URINE NEGATIVE (negative); BLOOD/HGB, URINE LARGE (Negative); KETONE, URINE NEGATIVE (Negative); LEUK ESTERASE, URINE SMALL (negative); NITRITE, URINE NEGATIVE (negative); PH, URINE 5.5 (5-7)
[2023-09-04 00:12] LABS: EPITHELIAL CELLS, URINE SQUAMOUS 1+ /lpf (0-1+)
[2023-09-04 00:13] LABS: BACTERIA, URINE RARE /hpf (negative); CASTS, URINE NONE SEEN \\lpf; CRYSTALS, URINE NONE SEEN (0-1+); RED BLOOD CELLS, URINE 41-50 /hpf (0-5); REFLEX CULTURE, URINE Yes (No); WHITE BLOOD CELLS, URINE 21-40 /HPF (0-5)
[2023-09-04 03:33] VITALS: BP 176/76
--- NOTE | 2023-09-04 03:39 | NUR ---
Report provided by ED-RN. Patient transferred via rney to room 107. Patient able to assist in sliding over to bed from [facility]. Denies pain, CMS to lower extremeties bilat intact. lower legs bilat chula, dry, flakey with 1+edema. Mathis in place and secured to upper right leg with bag below level of bed. VSS, call light within reach.
--- NOTE | 2023-09-04 04:09 | NUR ---
PT ADMITTED TO ROOM 107 FROM ED AT 0333. A/O, KNOWN TO THIS NATIONAL ACCOUNTS RECRUITER, PT RECOGNIZES WELL. ALTHOUGH PT STATES HE HAS SOME SHORT TERM MEMORY LOSS, HE WAS ABLE TO ANSWER ADMISSION QUESTIONS, WITH SOME EXCEPTIONS. SELF ADMINSTRATES MEDICATIONS BUT DOESN/T KNOW NAMES. STATES HE IS AWAITING AN APPOINTMENT FOR A LOWER BACK SURGERY, HE WONDERS IF THAT IS WHY HIS LEGS DIDN'T HOLD HIM UP PRIOR TO ADMISSION. EDUCATED THE CALL LIGHT, BED CONTROLS. HE IS AWARE THAT HE ISN'T TO GET UP WITHOUT HELP, STATES HE CAN'T. WATCHING TV CURRENTLY;
--- NOTE | 2023-09-04 05:48 | NUR ---
Patient resting comfortably since admission, Has had no complaints, lights out and call light within reach.
--- NOTE | 2023-09-04 07:00 | NUR ---
REPORT RECEIVED FROM AKIKO EVANS. PT RESTING IN BED WITH EYES CLOSED, RR EVEN AND UNLABORED. RR OF 16 NOTED. PT HAS BLANKET OVER EYES. NO NEEDS IDENTIFIED AT THIS TIME. CALL LIGHT IN REACH.
--- NOTE | 2023-09-04 09:18 | NUR ---
IN TO ROUND ON PT. PT SITTING UP IN BED EATING BREAKFAST. PT RESPONDS WHEN ADDRESSED. PT DENIES PAIN AT THIS TIME. PT DENIES NUMBNESS OR TINGLING AT THIS TIME. ASSESSMENT COMPLETE. LUNG SOUNDS CLEAR. BOWEL TONES ACTIVE. PT DENIES PAIN OR TENDERNESS WITH ABD PALPATION. EDEMA NOTED TO BLE. BLE NOTED TO BE YOU. R PINEDA NOTED TO HAVE A SCAB. IV IN LEFT FOREARM RENDESS NOTED AND PT REPORTS PAIN WITH FLUSHING. IV REMOVED WNL. NEW IV STARTED IN LEFT FOREARM. PT TOLERATED WELL. ABIMBOLA RN IN TO TALK WITH PT. NO OTHER NEEDS FROM THIS RN AT THIS TIME. CALL LIGHT IN REACH. BREAKFAST TRAY REMOVED.
[2023-09-04 10:12] VITALS: BP 145/53
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
--- NOTE | 2023-09-04 10:15 | NUR ---
IN TO ADMINISTER MEDICATION, SEE MAR. PT TAKES PO MEDICATION WITH NO ISSUES. DAVE RUSSELL IN ROOM. VITALS COMPLETE. PT SITTING UP IN BED. PT DENIES ANY OTHER NEEDS AT THIS TIME. CALL LIGHT IN REACH.
--- NOTE | 2023-09-04 11:04 | NUR ---
MS BOLES. NO VISIT. PHYSICAL THERAPY WORKING WITH PT. PROVIDED SILENT PRAYER.
[2023-09-04] MEDS ORDERED: TAMSULOSIN HCL0.4 MG PO (11:17)
[2023-09-04] MEDS ORDERED: OZEMPIC0.25 MG/02 SQ (11:17)
[2023-09-04] MEDS ORDERED: METOPROLOL SUCC50 MG PO (11:18)
[2023-09-04] MEDS ORDERED: FUROSEMIDE20 MG PO (11:19)
[2023-09-04] MEDS ORDERED: CALCITONIN-SAL3.7 ML NAS (11:20)
[2023-09-04] MEDS ORDERED: MELATONIN10 M2 PO (12:30)
--- NOTE | 2023-09-04 12:30 | NUR ---
MED REC COMPLETE
--- NOTE | 2023-09-04 12:32 | NUR ---
IN TO ROUND ON PT. DAVE GRAHAM IN ROOM ATTEMPTING TO BOOST PT. THIS RN AND DAVE GRAHAM BOOST PT UP IN BED. BLE ELEVATED WITH PILLOW. LUNCH TRAY PROVIDED. PT DENIES ANY OTHER NEEDS AT THIS TIME. CALL LIGHT IN REACH.
[2023-09-04 13:16] VITALS: BP 139/70
--- NOTE | 2023-09-04 14:03 | NUR ---
IN TO ROUND ON PT. PT SITTING UP IN BED HIGH-FOWLERS. EYES CLOSED, RR EVEN AND UNLABORED. RR OF 18 NOTED. NO OTHER NEEDS IDENTIFIED AT THIS TIME. CALL LIGHT IN REACH.
--- NOTE | 2023-09-04 14:46 | NUR ---
IN TO ROUND ON PT. PT SITTING UP IN BED. PT RESPONDS WHEN ADDRESSED. ASSESSMENT COMPLETE. LUNG SOUNDS CLEAR. PT DENIES PAIN AT THIS TIME. PT DENIES NAUSEA AT THIS TIME. EDEMA NOTED TO BLE. PT DENIES ANY OTHER NEEDS AT THIS TIME. CALL LIGHT IN REACH.
--- NOTE | 2023-09-04 16:19 | NUR ---
IN TO ROUND ON PT. PT SITTING UP IN BED AND RESPONDS WHEN ADDRESSED. PT REQUESTING DIET HEATHER, DIET HEATHER PROVIDED. PT DENIES ANY OTHER NEEDS AT THIS TIME. CALL LIGHT IN REACH.
[2023-09-04 18:00] VITALS: BP 152/69
--- NOTE | 2023-09-04 18:20 | NUR ---
IN TO ANSWER CALL LIGHT. PT REPORTING TOILETING. AKIKO FUCHS IN TO ASSIST. 2PA WITH FWW AND GAIT BELT FROM BED TO RESTROOM. PT INFORMED TO USE PULL CORD ON WALL WHEN FINISHED. PT DENIES ANY OTHER NEEDS AT THIS TIME.
--- NOTE | 2023-09-04 18:31 | NUR ---
IN WITH DAVE GRAHAM TO ANSWER CALL LIGHT. PT DONE WITH TOILETING. 2PA WITH FWW AND GAIT BELT FROM RESTOOM TO BED. PT BACK IN BED. BLE ELEVATED ON PILLOW. PT DENIES ANY OTHER NEEDS AT THIS TIME. CALL LIGHT IN REACH.
--- NOTE | 2023-09-04 19:18 | EKG ---
[facility] [address] [facility] [place] [address] Signed Normal sinus rhythm Normal ECG When compared with ECG of 26-MAY-2023 19:43, aberrant conduction is no longer present Confirmed by SHAHLA GARCÍA MD ([id number]) on 09/04/2023 7:18:07 PM Electronically Signed By: SHAHLA GARCÍA 09/04/231917 PATIENT NAME: PORTIA PLAZA DAGOBERTO Electrocardiogram DATE OF : 47 PHYSICIAN: SHAHLA GARCÍA REPORT #: [id number] REPORT IS CONFIDENTIAL AND NOT TO BE RELEASED WITHOUT AUTHORIZATION
--- NOTE | 2023-09-04 19:40 | NUR ---
Patient resting in bed watching TV, no complaints, Report provided by dayshift RN, patient call light within reach.
[2023-09-04 20:38] VITALS: BP 142/73
--- NOTE | 2023-09-04 20:48 | NUR ---
Patient resting in bed watching TV, Denies pain, VSS, maher intact and below level of bed, Blood sugar 216 and 3units given per SS. lower legs remain weak, CMS intact, legs bilat chula, dry and flacky with 2+edama, legs elevated. Patient states chronic numbness bilat due to neuropathy. Given HC snack. call light within reach.
--- NOTE | 2023-09-04 23:51 | NUR ---
Patient awake, talked with his mom on the phone and is now looking at the TV guide. Has no complaints, call light in reach.
[2023-09-05 01:52] VITALS: BP 147/78
--- NOTE | 2023-09-05 01:54 | NUR ---
Patient awake, has slept very little so far. Denies discomfort, VSS, maher intact with adequate output. lower extremeties unchanged, CMS intact. patient going to try and get some sleep now, lights are out and call light within reach.
--- NOTE | 2023-09-05 03:42 | NUR ---
Patient resting with eyes closed, lights are out, no noted distress, call light within reach.
--- NOTE | 2023-09-05 05:00 | NUR ---
Patient awake and assisted up to BR. Tolerated poorly, Requiring total assist. felt he needed to have BM but passed a large amount of flatus. Is now back in bed. call light within reach.
[2023-09-05 05:36] VITALS: BP 139/65
--- NOTE | 2023-09-05 05:39 | NUR ---
Patient requested and given a warm blanket. morning VSS. Denies discomfort, Has slept on and off during the night. lights are out and patient trying to go to sleep. call light within reach.
--- NOTE | 2023-09-05 07:30 | NUR ---
REPORT RECEIVED FROM AKIKO EVANS. PT LAYING IN BED SEMI-FOWLERS. PTs EYES CLOSED, RR EVEN AND UNLABORED. RR OF 18 NOTED. NO NEEDS IDENTIFED AT THIS TIME. CALL LIGHT IN REACH.
--- NOTE | 2023-09-05 08:06 | NUR ---
UR NOTE [facility] URINARY TRACT INFECTION: OBSERVATION CARE (ISC) 09/03/23 MET OBSERVATION CARE ADMISSION CRITERIA
--- NOTE | 2023-09-05 08:30 | NUR ---
Pt discussed in [address] Alva. Pt can dc today per . PT will work with pt this am to determine mobility.
--- NOTE | 2023-09-05 09:23 | NUR ---
IN TO ADMINISTER MEDICAITONS, SEE MAR. PT TAKES PO MEDICATION WITH NO ISSUES. PT SITTING UP IN BED AND RESPONDS WHEN ADDRESSED. ASSESSMENT COMPLETE. LUNG SOUNDS CLEAR THROUGHTOUT ALL LOBES. BOWEL TONES ACTIVE. ABD NON-TENDER WITH PALPATIONS. PT DENIES PAIN AT THIS TIME. EDEMA NOTED TO BLE. BLE YOU AND FLAKEY NOTED. BLE ELEVATED ON PILLOW. CMS INTACT. PT A&O TO ALL. PT SITTING UP IN BED TALKING WITH AKIKO FERREIRA FROM CASE MANAGEMENT. NO OTHER NEEDS FROM THIS RN AT THIS TIME. CALL LIGHT IN REACH.
[2023-09-05] MEDS ORDERED: SULFAMETHOXAZO1 EAC1 PO (10:34)
[2023-09-05 10:39] VITALS: BP 148/73
--- NOTE | 2023-09-05 10:40 | NUR ---
Spoke with PT. They worked with pt today. Pt did well and did not show any weakness. I spoke with pt and reviewed here is here as a OBS pt and the does not feel he qualifies for IP status. I asked if he would like a commode for home or is interested in a velvet. He does not feel he needs a velvet. He states he can ambulate. His concern is getting to the lab to have his blood drawn and getting in his home if he discharges. He wants to have his labs drawn at [facility] as he states this is needed for his neurosurgery. We discussed a plan for pt to dc with family, they can take him to the lab for the blood draw, to [place] to get a commode, then home. Pt is concerned he might be weak. I gave him the phone number for EMS to do a lift assist when he gets home. I also gave him the address and phone number fpr [place] and for [id number]. I updated the charge nurse and was notified has written a dc order.
--- NOTE | 2023-09-05 10:43 | NUR ---
MS BOLES. PT ON PHONE. DID NOT INTERRUPT. PROVIDED SILENT PRAYER.
--- NOTE | 2023-09-05 10:48 | NUR ---
IN TO ADMINISTER MEDICATIONS, SEE MAR. PT SITTING UP IN RECLINER. PT RESPONDS WHEN ADDRESSED. PT DENIES ANY OTHER NEEDS AT THIS TIME. CALL LIGHT IN REACH. CHAIR ALARM ON. AKIKO FERREIRA CASEMA[employer]GEMENT IN ROOM.
--- NOTE | 2023-09-05 12:02 | NUR ---
IN TO GO OVER DC INSTRUCTIONS. VERBAL AND WRITTEN INSTRUCTIONS PROVIDED. PT VERBALIZES UNDERSTANDING. QUESTIONS ANSWERED. PT INFORMED THAT PT NEEDS TO MAKE FOLLOW UP APPOINTMENT WITH NEUROLOGY. PT VERBALIZES UNDERSTANDING. IV REMOVED WNL, SEE VASCULAR ACCESS. PHIPPS CATH CARE PROVIDED, SEE ADLs. WATCH PLACED BACK ON PTs WRIST. PT SITTING UP IN RECLINER. PT DENIES ANY OTHER NEEDS AT THIS TIME. CALL LIGHT IN REACH.
[2023-09-05 13:38] VITALS: BP 165/79
== END 2023-09-05 13:35 | disposition home or self-care (01) ==
LOC: ED 22:04 → MS 22:06
PROVIDERS: Emergency Medicine; ADMIT Internal Medicine; ATTEND Internal Medicine
DX: N39.0 Urinary tract infection, site not specified (principal); M48.00 Spinal stenosis, site unspecified; R53.1 Weakness; I10 Essential (primary) hypertension; E03.9 Hypothyroidism, unspecified; E11.9 Type 2 diabetes mellitus without complications; Z88.0 Allergy status to penicillin; Z79.82 Long term (current) use of aspirin; Z79.84 Long term (current) use of oral hypoglycemic drugs; Z79.890 Hormone replacement therapy; Z79.899 Other long term (current) drug therapy
CPT/HCPCS: 36415; 51702; 80053; 81001; 85025; 87088; 93005; 93010; 96372; 97162; 97530; 99285-25; A9270; G0378; J0696; J1650; J1815; J7030